=== PATIENT | female | born 1985 | race Caucasian/White ===

== ENCOUNTER 2019-07-19 14:35 | Emergency (ER) | payer OTHER, SELFPAY ==
--- NOTE | 2019-07-19 14:51 | ED_ITS ---
HPI - General Adult General Chief complaint: Nausea/Vomiting/Diarrhea Stated complaint: nausea Time Seen by Provider: 07/19/19 14:44 Source: patient Mode of arrival: Ambulatory Limitations: no limitations History of Present Illness HPI narrative: 34-year-old female here for evaluation approximately 1 week of nausea. It did have 1 episode of vomiting at the beginning of this but nothing since then. Did have a couple episodes of diarrhea at the beginning however that his resolved. She was eating an apple upon arrival. She was concerned that potentially she drank some bugs that she found in the tap water as she was refilling her fish tank. She also feels very fatigued. Has not tried anything for symptoms prior to arrival Related Data Previous Rx's Medication Instructions Recorded ondansetron 4 mg PO Q6H PRN #10 tab 07/19/19 Allergies Allergy/AdvReac Type Severity Reaction Status Date / Time Penicillins Allergy Rash Verified 07/19/19 15:02 Review of Systems Constitutional Constitutional: Reports fatigue and Denies fever(s) Cardiovascular Cardiovascular: Denies chest pain Respiratory Respiratory: Denies cough Gastrointestinal Gastrointestinal: Denies abdominal pain and Reports nausea Integumentary/Breasts Skin/Breast: Denies lesions and Denies rash Neurologic Neurologic: Denies behavioral changes Psychiatric Psychiatric: Denies behavioral changes Endocrine Endocrine: Reports fatigue Hematologic/Lymphatic Hematologic/Lymphatic: Denies easy bleeding and Denies easy bruising Allergic/Immunologic Allergic/Immunologic: Denies urticaria Patient History Medical History Healthy adult (Acute) Social History Smoking Status: Never smoker Exam Initial Vital Signs Initial Vital Signs: Vital Signs Temperature 98.8 F 07/19/19 14:53 Pulse Rate 109 H 07/19/19 14:53 Respiratory Rate 20 07/19/19 14:53 Blood Pressure 123/75 07/19/19 14:53 Pulse Oximetry 96 07/19/19 14:53 Const General: cooperative, comfortable, well developed and well groomed HENPA Head: normal to inspection and normocephalic Resp Effort & Inspection: normal respiratory effort Auscultation: clear to auscultation bilaterally Cardio Rate: tachycardic Rhythm: regular rhythm GI Inspection: non-distended Palpation: soft Auscultation: normal bowel sounds Skin Lesions: no lesions Rashes: no rashes Neuro General: patient alert, patient awake and patient oriented x3 Cognition: normal cognition Speech: speech normal Extrem General: normal to inspection and capillary refill normal Psych Appearance: grossly normal and well kempt Scores GCS [place] coma scale eye opening: Spontaneous [place] coma scale verbal response: Orientated [place] coma scale motor response: Obey commands [place] coma scale total score: 15 Nexus Score for C-Spine Focal Neurologic deficit present: No Midline spinal tenderness present: No Altered level of conciousness present: No Intoxication present: No Distracting Injury Present: No Nexus Criteria for C-spine: 0 Course Orders Ordered: ED Orders 07/19/19 15:04 Complete Blood Count AUTO DIFF Stat Comprehensive Metabolic Panel Stat Lipase Stat Test Serum,Qual Stat Discontinued Medications Acetaminophen (Tylenol) 975 mg PO NOW ONE Stop: 07/19/19 14:52 Last Admin: 07/19/19 15:01 Dose: 975 mg Documented by: SARA Ondansetron HCl (Zofran Odt) 4 mg PO NOW ONE Stop: 07/19/19 14:52 Last Admin: 07/19/19 15:01 Dose: 4 mg Documented by: SARA Vital Signs Vital signs: Vital Signs - 8 hr 07/19/19 14:53 Temperature 98.8 F Pulse Rate 109 H Respiratory Rate 20 Blood Pressure 123/75 Pulse Oximetry 96 Medical Decision Making Lab Data Lab results reviewed: Yes I reviewed the patient's lab results. Result diagrams: 07/19/19 15:04 07/19/19 15:04 Labs: Lab Results 07/19/19 07/19/19 07/19/19 Range/Units 15:04 15:04 15:04 WBC 8.1 (4.5-11.0) X10^3/uL RBC 3.87 L (4.0-5.2) X10^6/uL Hgb 12.1 (12.0-16.0) g/dL Hct 34.8 L (36-46) % MCV 89.9 (80-100) fL MCH 31.2 (26-34) PG MCHC 34.7 (30-36) % RDW 16.0 H (11.6-14.8) % Plt Count 234 (150-400) X10^3/uL Neut % (Auto) 58.5 (50-75) % Lymph % (Auto) 33.0 (25-40) % Hanson % (Auto) 6.9 (3-14) % Eos % (Auto) 1.2 L (2-4) % Baso % (Auto) 0.4 (0-2) % Neut # (Auto) 4700 (8762-3170) /uL Lymph # (Auto) 2700 (4198-6978) /uL Hanson # (Auto) 600 (0-900) /uL Eos # (Auto) 100 (0-450) /uL Baso # (Auto) 0 (0-100) /uL Sodium 138 (137-145) mmol/L Potassium 4.0 (3.4-5.1) mmol/L Chloride 105 (98-107) mmol/L Carbon Dioxide 27 (22-32) mmol/L BUN 12 (7-17) mg/dL Creatinine 0.67 (0.52-1.04) mg/dL Estimated GFR > 60.0 (>60) mL/min BUN/Creatinine Ratio 17.9 (6-22) Glucose 99 (70-100) mg/dL Calcium 9.2 (8.4-10.2) mg/dL Total Bilirubin 0.2 (0.2-1.3) mg/dL AST 25 (14-36) IU/L ALT 16 (<35) IU/L Alkaline Phosphatase 39 (38-126) U/L Total Protein 7.2 (6.3-8.2) g/dL Albumin 4.2 (3.5-5.0) g/dL Globulin 3.0 (1.7-4.1) g/dL Albumin/Globulin Ratio 1.4 (1.0-2.8) Lipase 52 (23-300) U/L Serum , Qual Negative (Negative) MDM Narrative Medical decision making narrative: Labs unremarkable, patient states her nausea is better after the Zofran. She was sleeping in the room. Patient declined an IV fluids. She was able to tolerate oral intake. Patient unable to provide a stool sample. Feel patient can be safely discharged home without further workup. She was given a phone number to contact the health natural resources engineer to establish a primary provider. She was given return precautions. Discharge Plan Departure Patient Disposition: Home Clinical Impression: Nausea Fatigue Qualifiers: Fatigue type: unspecified Qualified Code(s): R53.83 - Other fatigue Instructions: DI for Nausea -- Adult Activity Restrictions/Additional Instructions: Use the nausea medicine as needed and as directed. Recommend you contact the health resource is coordinator here at the [facility] at [phone] to help you establish a primary provider. Be sure to eat a bland diet and drink plenty of fluids. Return to the emergency department for any new symptoms Prescriptions: New ondansetron 4 mg tablet,disintegrating 4 mg PO Q6H PRN (Reason: nausea and vomiting) Qty: 10 RF: 0
[2019-07-19 14:53] VITALS: BP 123/75; PULSE 109; RESP 20; TEMP 37.1; O2SAT 96; BMI 20.5
[2019-07-19] MEDS: ONDANSETRON 4 MG ODT PO (15:01)
[2019-07-19] MEDS: ACETAMINOPHEN 325 MG TABLET 975 MG PO (15:01)
[2019-07-19 15:10] LABS: Add Manual Diff / Slide Review NO; Basophils Absolute Auto 0 /uL (0-100); Basophils Percent Auto 0.4 % (0-2); Eosinophils Absolute Auto 100 /uL (0-450); Eosinophils Percent Auto 1.2 % (2-4); Hematocrit 34.8 % (36-46); Hemoglobin 12.1 g/dL (12.0-16.0); Lymphocytes Absolute Auto 2700 /uL (1100-4500); Mean Corpuscular HGB Conc 34.7 % (30-36); Mean Corpuscular Hemoglobin 31.2 PG (26-34); Mean Corpuscular Volume 89.9 fL (80-100); Monocytes Absolute Auto 600 /uL (0-900); Monocytes Percent Auto 6.9 % (3-14); Neutrophils Absolute Auto 4700 /uL (1500-7000); Neutrophils Percent Auto 58.5 % (50-75); Platelet Count 234 X10^3/uL (150-400); Red Blood Cell Count 3.87 X10^6/uL (4.0-5.2); White Blood Cell Count 8.1 X10^3/uL (4.5-11.0)
[2019-07-19 15:25] LABS: Alanine Aminotransferase 16 IU/L (<35); Albumin 4.2 g/dL (3.5-5.0); Albumin Globulin Ratio 1.4 (1.0-2.8); Alkaline Phosphatase 39 U/L (38-126); Aspartate Aminotransferase 25 IU/L (14-36); BUN Creatinine Ratio 17.9 (6-22); Bilirubin Total 0.2 mg/dL (0.2-1.3); Blood Urea Nitrogen 12 mg/dL (7-17); Calcium 9.2 mg/dL (8.4-10.2); Carbon Dioxide 27 mmol/L (22-32); Chloride 105 mmol/L (98-107); Estimated Glomerular Filt Rate > 60.0 mL/min (>60); Glucose 99 mg/dL (70-100); HEMOLYSIS < 15 (0-50); Lipase 52 U/L (23-300); Sodium 138 mmol/L (137-145); Total Protein 7.2 g/dL (6.3-8.2)
[2019-07-19 15:29] LABS: Pregnancy Test Serum,Qual Negative (Negative)
--- NOTE | 2019-07-19 16:10 | PC.NURSE ---
attempted to discharge pt. In very raised voice pt states she was not comfortable with her care. States doctor was talking about a bug but we don't know if a bug is there. Pt states she will [facility] the hospital because she feels weak and unable to walk and is afraid she will fall on the side walk. Pt states she will just come back later when another doctor is here to get a second opinion. I reminded pt that she refused and IV and has not given us a stool sample. Pt states she will try to leave a stool sample and wants us to test it before she leaves. I walked pt to the restroom and told her if she can leave a sample we will send it to the lab. I notified Dr. Wray of above.
--- NOTE | 2019-07-20 10:11 | PC.NURSE ---
stool sample received at ER registration. Dr mallory filled out a written rec for stool panel/culture. Stool and written rec hand delivered to lab. Pt informed they would be contacted if there were any positive results. No contact means no findings in sample. Patient verbally expressed understanding of instructions. Denies further needs.
== END 2019-07-19 16:23 | disposition home or self-care (01) ==
PROVIDERS: Emergency Provider Emergency Medicine
DX: R11.0 Nausea (principal); R53.83 Other fatigue
CPT/HCPCS: 36415; 80053; 83690; 84703; 85025; 99283

== ENCOUNTER → 2019-07-20 11:56 | Outpatient (ROUT) | payer OTHER, SELFPAY ==
[2019-07-20 15:52] LABS: Adenovirus F 40/41 Not Detected (Not Detect); Astrovirus Not Detected (Not Detect); Campylobacter Not Detected (Not Detect); Clostridium difficile toxin AB Not Detected (Not Detect); Cryptosporidium Not Detected (Not Detect); Cyclospora cayetanensis Not Detected (Not Detect); Entamoeba histolytica Not Detected (Not Detect); Enteroaggregative E.coli Not Detected (Not Detect); Enteropathogenic E.coli Not Detected (Not Detect); Enterotoxigenic E.coli It/st Not Detected (Not Detect); Giardia lamblia Not Detected (Not Detect); Norovirus GI/GII Not Detected (Not Detect); Plesiomonsa shigelloides Not Detected (Not Detect); Rotavirus A Not Detected (Not Detect); Salmonella Not Detected (Not Detect); Shiga-like toxin-prod E.coli Not Detected (Not Detect); Shigella/Enteroinvasive E.coli Not Detected (Not Detect); Vibrio Not Detected (Not Detect); Vibrio cholerae Not Detected (Not Detect); Yersinia enterocolitica Not Detected (Not Detect)
[2019-07-20 15:53] LABS: Sapovirus Not Detected (Not Detect)
== END ==
PROVIDERS: Visit Provider Emergency Medicine
DX: R11.10 Vomiting, unspecified (principal); R10.9 Unspecified abdominal pain; Z77.111 Contact with and (suspected) exposure to water pollution
CPT/HCPCS: 87507